=== PATIENT | male | born 1955 | race Caucasian/White ===

== ENCOUNTER 2018-12-12 18:08 | Emergency (ER) | payer MEDICARE, OTHER ==
--- NOTE | 2018-12-12 20:53 | CT ---
CT BRAIN WITHOUT CONTRAST: Date: 12/12/18 The ventricles are normal in size with no shift. No intracranial bleeding or extra-axial hematoma see n. There is no sign of mass, stroke, or edema. Laceration is seen over the high left frontal region. The underlying bone appears intact. There are no skull fractures. The sphenoid sinus and mastoid air cells are clear. IMPRESSION: No acute intracranial findings. POS: HOME
--- NOTE | 2018-12-12 20:56 | CT ---
CT CERVICAL SPINE: Date: 12/12/[address] of the cervical spine was performed following trauma. Axial slices were acquired, then hilda nal and sagittal reconstructions were done. FINDINGS: No fracture, dislocation, or soft tissue swelling was seen at any cervical level. All vertebra appear intact. The C1 to dens distance is normal. Disc space narrowing is present at C3-C4, C5-C6, and C6-C 7. Very large anterior bridging osteophytes are seen at C5 through T1. Findings by level follow: C1-C2: No acute findings. C2-C3: No acute findings. C3-C4: Severe bilateral foraminal narrowing due to osteophytes. C4-C5: Mild right foraminal narrowing and moderate left foraminal narrowing. Significant facet arthr itis on the left at this level. C5-C6: Severe bilateral foraminal narrowing due to osteophytes. C6-C7: Mild right foraminal narrowing due to osteophyte. C7-T1: No acute findings. T1-T2: No acute findings. Lung apices are clear, although there is some apical scarring present, particularly on the right side . IMPRESSION: Severe degenerative changes, but no acute traumatic findings. POS: HOME
--- NOTE | 2018-12-12 21:06 | CT ---
CT OF THE THORACIC SPINE 12/12/[address] of the thoracic spine was performed following trauma. Axial slices were acquired, followed by coronal and sagittal reconstruction. No fracture, dislocation or acute bony change was seen. All vertebrae appear intact. Some degenerated discs are seen in most of the lower thoracic level. The end plates of most of the thoracic vertebrae are irregular, particularly in the lower half of the thoracic spine. This may be degenerative in selma ure, due to old Schmorl's nodes, or even prior Scheuermann's disease. There is no wedging of vertebra e, however. There was no evidence of central canal or significant foraminal stenosis at any of the th oracic levels. IMPRESSION: Degenerative changes but no acute traumatic findings. POS: HOME
== END 2018-12-12 20:35 | disposition home or self-care (01) ==
LOC: BURERS 18:08
DX: S01.01XA Laceration without foreign body of scalp, initial encounter (principal); F17.210 Nicotine dependence, cigarettes, uncomplicated; V49.9XXA Car occupant (driver) (passenger) injured in unspecified traffic accident, initial encounter
CPT/HCPCS: 12004; 70450; 72125; 72128; 99284; G0390

== ENCOUNTER 2018-12-19 10:50 | Emergency (ER) | payer MEDICARE, OTHER | END 2018-12-19 11:21 | disposition home or self-care (01) | LOC: BURERS 10:50 | DX: S01.01XD Laceration without foreign body of scalp, subsequent encounter (principal); F17.210 Nicotine dependence, cigarettes, uncomplicated ==